=== PATIENT | female | born 1950 | race Caucasian/White ===

== ENCOUNTER 2024-08-06 14:10 | Inpatient (IN) | payer MEDICARE, OTHER ==
[~2024-08-06] VITALS: Ht 162.6 cm; Wt 84.8 kg
[~2024-08-06 14:10] MED LIST: CARV6.253 PO; CLOP75TA34 PO; EMPA25TA PO; EZET10TA48 PO; FURO-150 PO; INSU100I29 SQ; ISOS60TA71; LEVO137T2 PO; LOSA50TA64 PO; NITR0.4T48; NOVLG; PANT40TA54 PO; SERT-434; SPIR25TA PO
[2024-08-06 15:29] LABS: BASOPHILS % (AUTO) 0.3 % (0-1); EOSINOPHILS % (AUTO) 0.2 % (0-6); HEMATOCRIT 33.6 % (35.0-45.0); HEMOGLOBIN 11.1 g/dl (12.0-16.0); LYMPHOCYTES % (AUTO) 7.9 % (21-51); MEAN CORPUSCULAR HEMOGLOBIN 30.3 PG (27.0-31.0); MEAN CORPUSCULAR HGB CONC 32.9 g/dL (33.0-36.5); MEAN CORPUSCULAR VOLUME 92.1 FL (78-98); MEAN PLATELET VOLUME 8.5 FL (7.4-10.4); MONOCYTES # (AUTO) 0.7 X10'3 (0-0.9); MONOCYTES % (AUTO) 5.9 % (2-12); NEUTROPHILS # (AUTO) 10.6 X10'3 (1.8-7.7); NEUTROPHILS % (AUTO) 85.7 % (42-75); PLATELET COUNT 213 X10'3 (140-440); RED BLOOD COUNT 3.65 X10'6 (4.20-5.60); RED CELL DISTRIBUTION WIDTH 16.4 % (11.5-14.5); WHITE BLOOD COUNT 12.3 X10'3 (4.5-11.0)
[2024-08-06 15:38] LABS: ALBUMIN 3.6 G/DL (3.4-5.0); ANION GAP 5 (8-16); BILIRUBIN,TOTAL 1.4 MG/DL (0.1-1.0); BLOOD UREA NITROGEN 23 MG/DL (7-18); BUN/CREATININE RATIO 23.2 (10.0-20.0); CHLORIDE 103 MMOL/L (99-107); CREATININE 0.99 MG/DL (0.40-0.90); GLUCOSE 209 MG/DL (70-104); POTASSIUM 4.7 MMOL/L (3.5-5.1); SODIUM 139 MMOL/L (135-145); TOTAL CARBON DIOXIDE 30.7 MMOL/L (24-32); TOTAL PROTEIN 6.8 G/DL (6.4-8.2); eGFR 55 ML/MIN
[2024-08-06 15:39] LABS: ALANINE AMINOTRANSFERASE 74 U/L (12-78); ALBUMIN/GLOBULIN RATIO 1.1 (1.1-1.5); ALKALINE PHOSPHATASE 74 IU/L (46-116); ASPARTATE AMINO TRANSFERASE 45 U/L (10-37)
[2024-08-06 15:48] LABS: PRO BRAIN NATRIURETIC PEPTIDE 13572 PG/ML (0-125)
[2024-08-06] MEDS: furosemide 10 MG/1 ML 10ml inj IV ONE (16:06)
[2024-08-06 16:08] VITALS: PULSE 68; RESP 16; O2SAT 96
[2024-08-06] MEDS ORDERED: HYDROcodone/acetaminophen 5mg/325mg tablet PO PRN (16:30)
[2024-08-06] MEDS ORDERED: HYDROcodone/acetaminophen 10/325mg tab PO PRN (16:30)
[2024-08-06] MEDS ORDERED: potassium Cl 20 mEq SR tablet PO PRN ×2 (16:30)
[2024-08-06] MEDS ORDERED: acetaminophen 325mg tablet PO PRN ×2 (16:30)
[2024-08-06] MEDS ORDERED: magnesium sulf-water 2g/50mL 50 ML IV PRN (16:30)
[2024-08-06] MEDS ORDERED: morphine 2 MG/ML inj. syringe IV PRN (16:30)
[2024-08-06] MEDS ORDERED: ondansetron/PF 4mg/2ml inj IV PRN (16:30)
[2024-08-06] MEDS ORDERED: potassium Cl 40MEQ/1/2NS 520ml 520 ML IV PRN (16:30)
[2024-08-06] MEDS: heparin 10,000 units/1 ML INJ IV ONE (16:39)
[2024-08-06] MEDS: heparin 25,000 UNIT/250ml bag 250 ML IV PRN (16:41)
[2024-08-06] MEDS ORDERED: heparin 10,000 units/1 ML INJ IV PRN (16:45)
[2024-08-06] MEDS ORDERED: heparin 25,000 UNIT/250ml bag 250 ML IV PRN (16:45)
[2024-08-06] MEDS: MESSAGE TO NURSING IV ONE (16:57)
[2024-08-06] MEDS: HEPARIN DRIP-CARDIAC**PHARMACIST-TO-DOSE IV ONE (16:58)
[2024-08-06] MEDS ORDERED: glucagon, human recombinant 1mg kit SUBCUT PRN (17:50)
[2024-08-06] MEDS ORDERED: DEXTROSE 15 GM of carb/4 tabs (each vial/BOTTLE has 4 tablets) PO PRN ×2 (17:50)
[2024-08-06] MEDS ORDERED: dextrose 50%-water 50ml dispensing syringe IV PRN ×2 (17:50)
[2024-08-06] MEDS: normal saline 1000ml 1,000 ML IV SCH (19:25)
[2024-08-06] MEDS: INSULIN LISPRO 100 UNIT/ML INSULN.PEN MULTI-DOSE SQ SCH (19:27)
[2024-08-06 20:03] VITALS: BP 99/59; PULSE 91; RESP 16; TEMP 97.8; O2SAT 94
[2024-08-06] MEDS: nitroGLYCERIN 0.4mg SUBLingual tab SL ONE (21:09)
[2024-08-06] MEDS ORDERED: nitroGLYCERIN-Tridil 50MG/D5W 250 ML IV ONE (21:13)
[2024-08-06] MEDS: morphine 2 MG/ML inj. syringe IV PRN (21:41)
[2024-08-06 21:52] VITALS: BP 142/104; PULSE 96; RESP 19; O2SAT 97
[2024-08-06 23:40] VITALS: BP 119/62; PULSE 94; RESP 18; O2SAT 93
[2024-08-07] MEDS: heparin 10,000 units/1 ML INJ IV PRN (00:09)
[2024-08-07] MEDS: MESSAGE TO NURSING IV ONE (00:55)
[2024-08-07 01:00] VITALS: BP 101/65; PULSE 88; O2SAT 93
[2024-08-07 01:30] VITALS: BP 103/70; PULSE 88; RESP 13
[2024-08-07 02:00] VITALS: BP 108/68; PULSE 89; RESP 20; TEMP 97.1; O2SAT 94
[2024-08-07 02:30] VITALS: BP 108/68; PULSE 90; RESP 14
[2024-08-07 03:30] VITALS: BP 119/69; PULSE 89; RESP 12
[2024-08-07] MEDS: morphine 4 MG/ML inj SYRINge IV PRN (04:23)
[2024-08-07] MEDS ORDERED: tenecteplase 50mg kit IV ONE (04:50)
[2024-08-07 05:24] LABS: BASOPHILS # (AUTO) 0.1 X10'3 (0-0.2); EOSINOPHILS % (AUTO) 0.2 % (0-6); HEMOGLOBIN 12.3 g/dl (12.0-16.0); MEAN PLATELET VOLUME 9.3 FL (7.4-10.4); MONOCYTES # (AUTO) 0.5 X10'3 (0-0.9)
[2024-08-07 05:26] LABS: BASOPHILS % (AUTO) 0.4 % (0-1); HEMATOCRIT 38.5 % (35.0-45.0); LYMPHOCYTES # (AUTO) 6.4 X10'3 (1.1-4.8); LYMPHOCYTES % (AUTO) 32.5 % (21-51); MEAN CORPUSCULAR HEMOGLOBIN 30.9 PG (27.0-31.0); MONOCYTES % (AUTO) 2.6 % (2-12); NEUTROPHILS # (AUTO) 12.6 X10'3 (1.8-7.7); NEUTROPHILS % (AUTO) 64.3 % (42-75); PLATELET COUNT 207 X10'3 (140-440); RED BLOOD COUNT 3.99 X10'6 (4.20-5.60); RED CELL DISTRIBUTION WIDTH 18.4 % (11.5-14.5); WHITE BLOOD COUNT 19.6 X10'3 (4.5-11.0)
[2024-08-07 05:28] LABS: ALANINE AMINOTRANSFERASE 584 U/L (12-78); ALKALINE PHOSPHATASE 87 IU/L (46-116); ANION GAP 26 (8-16); ASPARTATE AMINO TRANSFERASE 573 U/L (10-37); BILIRUBIN,TOTAL 1.3 MG/DL (0.1-1.0); BLOOD UREA NITROGEN 31 MG/DL (7-18); BUN/CREATININE RATIO 19.4 (10.0-20.0); CALCIUM 8.5 MG/DL (8.5-10.1); CHLORIDE 99 MMOL/L (99-107); SODIUM 147 MMOL/L (135-145); TOTAL PROTEIN 6.1 G/DL (6.4-8.2); eCRCL 27 ML/MIN; eGFR 32 ML/MIN
[2024-08-07 05:29] LABS: POTASSIUM 5.9 MMOL/L (3.5-5.1)
[2024-08-07 05:37] LABS: PRO BRAIN NATRIURETIC PEPTIDE 17068 PG/ML (0-125)
[2024-08-07 05:39] LABS: ALANINE AMINOTRANSFERASE 170 U/L (12-78); ALBUMIN 3.5 G/DL (3.4-5.0); ALBUMIN/GLOBULIN RATIO 1.1 (1.1-1.5); ALKALINE PHOSPHATASE 77 IU/L (46-116); ANION GAP 14 (8-16); ASPARTATE AMINO TRANSFERASE 167 U/L (10-37); BILIRUBIN,TOTAL 1.4 MG/DL (0.1-1.0); BLOOD UREA NITROGEN 30 MG/DL (7-18); BUN/CREATININE RATIO 22.1 (10.0-20.0); CALCIUM 8.7 MG/DL (8.5-10.1); CHLORIDE 97 MMOL/L (99-107); CREATININE 1.36 MG/DL (0.40-0.90); GLUCOSE 296 MG/DL (70-104); SODIUM 134 MMOL/L (135-145); TOTAL CARBON DIOXIDE 22.7 MMOL/L (24-32); TOTAL PROTEIN 6.8 G/DL (6.4-8.2); eCRCL 32 ML/MIN; eGFR 38 ML/MIN
[2024-08-07 05:39] LABS: GLUCOSE 407 MG/DL (70-104)
[2024-08-07 05:44] LABS: MEAN CORPUSCULAR VOLUME 96.6 FL (78-98)
[2024-08-07 06:16] LABS: POTASSIUM 4.1 MMOL/L (3.5-5.1)
[2024-08-07 06:59] LABS: ANISOCYTOSIS 2+; PLATELET ESTIMATE NORMAL; TOTAL CELLS COUNTED 100
[2024-08-07 07:01] LABS: NUCLEATED RED BLOOD CELLS 2 /100WBC (0-0)
[2024-08-07] MEDS ORDERED: epiNEPHrine 0.1mg/ml 10ml syringe ONE (08:00)
[2024-08-07] MEDS ORDERED: iohexol 350MG/ML 100ml bottle IV ONE (09:15)
[2024-08-07] MEDS ORDERED: iohexol 350 MG/ML 50ML vial IV ONE (09:15)
[2024-08-07] MEDS ORDERED: heparin 1,000 UNITS/NS 500ml 0 ML ONE (09:15)
[2024-08-07] MEDS ORDERED: LIDOcaine 1% 30ml preserv. free vial ONE (09:15)
== END 2024-08-07 11:51 ==
LOC: ER 14:10 → ED HOLD 16:35 → PCU 3S 19:50
PROVIDERS: ADMIT Internal Medicine; ATTEND Internal Medicine
PROC: 5A12012 Performance of Cardiac Output, Single, Manual (ICD-10-PCS; principal; 2024-08-07)
DX: I21.3 ST elevation (STEMI) myocardial infarction of unspecified site (principal); I50.23 Acute on chronic systolic (congestive) heart failure; I42.0 Dilated cardiomyopathy; I11.0 Hypertensive heart disease with heart failure; E11.9 Type 2 diabetes mellitus without complications; E78.00 Pure hypercholesterolemia, unspecified; I46.9 Cardiac arrest, cause unspecified; I25.5 Ischemic cardiomyopathy; I25.10 Atherosclerotic heart disease of native coronary artery without angina pectoris; I25.2 Old myocardial infarction; Z87.891 Personal history of nicotine dependence; Z95.1 Presence of aortocoronary bypass graft; Z88.8 Allergy status to other drugs, medicaments and biological substances
CPT/HCPCS: 36415; 71045; 80053; 82948; 83605; 83880; 84484; 85007; 85025; 85730; 92950; 93005; 99285; A6258; G0378; J0171; J1644; J1815; J1940; J2270; J3475; J3490; J7030; Q9967